=== PATIENT | male | born 1945 | race Caucasian/White ===

== ENCOUNTER 2016-11-01 06:33 | Inpatient (IN) | payer OTHER, MEDICARE ==
--- NOTE | 2016-10-18 08:17 | EKG REPORT ---
SEVERITY:- ABNORMAL ECG - SINUS RHYTHM LVH WITH SECONDARY REPOLARIZATION ABNORMALITY : Confirmed by: Mj Adler MD 18-Oct-2016 08:16:48
[2016-10-18 09:26] LABS: ABSOLUTE BASOPHILS # (AUTO) 0.1 10^3/uL (0.0-0.2); ABSOLUTE EOSINOPHILS # (AUTO) 0.2 10^3/uL (0.0-0.6); ABSOLUTE LYMPHOCYTES (AUTO) 1.6 10^3/uL (0.5-4.7); ABSOLUTE MONOCYTES (AUTO) 0.6 10^3/uL (0.1-1.4); ABSOLUTE NEUT (AUTO) 6.5 10^3/uL (1.7-8.2); BASOPHILS % (AUTO) 0.6 % (0-2); HEMATOCRIT 43.2 % (37.9-51.0); HEMOGLOBIN 14.3 g/dL (13.5-17.0); HGB HCT DIFFERENCE -0.3; LYMPHOCYTES % (AUTO) 17.5 % (13-45); MEAN CORPUSCULAR HEMOGLOBIN 29.5 pg (27.0-33.4); MEAN CORPUSCULAR HGB CONC 33.1 g/dL (32.0-36.0); MEAN CORPUSCULAR VOLUME 89 fl (80-97); RED BLOOD COUNT 4.84 10^6/uL (4.35-5.55); RED CELL DISTRIBUTION WIDTH 14.7 % (11.5-14.0); SEGMENTED NEUTROPHILS % (AUTO) 72.9 % (42-78); WHITE BLOOD COUNT 8.9 10^3/uL (4.0-10.5)
[2016-10-18 09:29] LABS: APPEARANCE,URINE CLEAR; BILIRUBIN,URINE NEGATIVE (NEGATIVE); GLUCOSE, URINE NEGATIVE (NEGATIVE); KETONES,URINE NEGATIVE (NEGATIVE); LEUKOCYTE ESTERASE,URINE NEGATIVE (NEGATIVE); NITRITE,URINE NEGATIVE (NEGATIVE); PROTEIN,URINE >=500 mg/dL (NEGATIVE); URINE SPECIFIC GRAVITY 1.024; UROBILINOGEN,URINE NEGATIVE mg/dL (<2.0)
[2016-10-18 09:59] LABS: ANION GAP 13 (5-19); BLOOD UREA NITROGEN 19 mg/dL (7-20); CALCIUM 9.5 mg/dL (8.4-10.2); CARBON DIOXIDE 28 mmol/L (22-30); CHLORIDE 103 mmol/L (98-107); CREATININE RESULT 0.93 mg/dL (0.52-1.25); GLUCOSE 112 mg/dL (75-110); POTASSIUM 4.2 mmol/L (3.6-5.0); SODIUM 143.8 mmol/L (137-145)
[2016-11-18 12:39] LABS: HEMATOCRIT 46.4 % (37.9-51.0); HEMOGLOBIN 15.2 g/dL (13.5-17.0); HGB HCT DIFFERENCE -0.8; MEAN CORPUSCULAR HEMOGLOBIN 29.6 pg (27.0-33.4); MEAN CORPUSCULAR HGB CONC 32.7 g/dL (32.0-36.0); MEAN CORPUSCULAR VOLUME 91 fl (80-97); RED BLOOD COUNT 5.13 10^6/uL (4.35-5.55)
[2016-11-18 12:44] LABS: APPEARANCE,URINE CLEAR; BILIRUBIN,URINE NEGATIVE (NEGATIVE); GLUCOSE, URINE NEGATIVE (NEGATIVE); KETONES,URINE NEGATIVE (NEGATIVE); LEUKOCYTE ESTERASE,URINE NEGATIVE (NEGATIVE); NITRITE,URINE NEGATIVE (NEGATIVE); PROTEIN,URINE 100 mg/dL (NEGATIVE); URINE SPECIFIC GRAVITY 1.014; UROBILINOGEN,URINE NEGATIVE mg/dL (<2.0)
[2016-11-18 12:58] LABS: ANION GAP 12 (5-19); BLOOD UREA NITROGEN 20 mg/dL (7-20); CALCIUM 9.9 mg/dL (8.4-10.2); CARBON DIOXIDE 31 mmol/L (22-30); CHLORIDE 100 mmol/L (98-107); CREATININE RESULT 0.98 mg/dL (0.52-1.25); GLUCOSE 86 mg/dL (75-110); POTASSIUM 4.8 mmol/L (3.6-5.0); SODIUM 142.7 mmol/L (137-145)
[2016-11-29] MEDS ORDERED: BUPIVACAINE INJ/PF LIPOSOME/PF 266 MG/20 ML SDV IJ PRN (05:00)
[2016-11-29] MEDS ORDERED: IBUPROFEN 800 MG in NORMAL SALINE 250 ML IV PRN (05:00)
[2016-11-29] MEDS ORDERED: IBUPROFEN 800 MG/NS 250 ML IV PRN ×2 (05:00)
[2016-11-29] MEDS ORDERED: SCOPOLAMINE HYDROBROMIDE 1.5 MG PATCH.TD72 TD PRN (05:00)
[2016-11-29] MEDS ORDERED: BUPIVACAINE INJ/PF LIPOSOME/PF 266 MG/20 ML SDV INFIL PRN (05:00)
[2016-11-29] MEDS ORDERED: OXYCODONE HCL SR 10 MG TABLET PO PRN ×2 (05:00)
[2016-11-29] MEDS ORDERED: NORMAL SALINE 1000 ML 1,000 ML IV PRN (05:00)
[2016-11-29] MEDS ORDERED: LANSOPRAZOLE 15 MG TAB.RAP.DR PO PRN ×2 (05:00)
[2016-11-29] MEDS ORDERED: SCOPOLAMINE HYDROBROMIDE 1.5 MG PATCH.TD72 TOP PRN (05:00)
[2016-11-29] MEDS ORDERED: VANCOMYCIN HCL 1,000 MG in DEXTROSE 5%-WATER 250 ML IV PRN ×4 (05:00)
[2016-11-29] MEDS ORDERED: ALBUTEROL SULFATE 0.083% NEB 2.5 MG/3 ML AMPUL NEB ONE (06:05)
[2016-11-29 06:34] LABS: POTASSIUM 3.7 mmol/L (3.6-5.0)
[2016-11-29] MEDS ORDERED: BUPIVACAINE INJ/PF LIPOSOME/PF 266 MG/20 ML SDV ONE (06:41)
[2016-11-29] MEDS ORDERED: THROMBIN (BOVINE) TOPICAL 20000 UNIT VIAL ONE (06:41)
[2016-11-29] MEDS ORDERED: THROMBIN (BOVINE) 5000 UNIT EPITAXIS KIT ONE (06:41)
[2016-11-29] MEDS ORDERED: PROPOFOL INJ 200 MG/20 ML VIAL IV ONE (06:44)
[2016-11-29] MEDS ORDERED: TRANEXAMIC ACID INJ/PF 1,000 MG/10 ML SDV IV ONE ×2 (06:44→11:00)
[2016-11-29] MEDS ORDERED: FENTANYL CITRATE INJ/PF 100 MCG/2 ML AMPUL ONE (06:44)
[2016-11-29] MEDS ORDERED: MIDAZOLAM 2 MG/2 ML INJ ONE (06:44)
[2016-11-29] MEDS ORDERED: CEFAZOLIN INJ 1 GM VIAL ONE (06:48)
[2016-11-29] MEDS ORDERED: PROMETHAZINE HCL INJ 25 MG/1 ML VIAL IV PRN (08:07)
[2016-11-29] MEDS ORDERED: MEPERIDINE HCL/PF INJ 25 MG/1 ML DISP.SYRIN IV PRN (08:07)
[2016-11-29] MEDS ORDERED: ONDANSETRON HCL INJ/PF 4 MG/2 ML SDV IV PRN ×2 (08:07→09:02)
[2016-11-29] MEDS ORDERED: FENTANYL CITRATE INJ/PF 100 MCG/2 ML AMPUL IV PRN ×3 (08:07)
[2016-11-29] MEDS ORDERED: MAG HYDROX/AL HYDROX/SIMETH SUSP 30 ML UDCUP PO PRN (09:02)
[2016-11-29] MEDS ORDERED: RINGERS SOLUTION,LACTATED 1,000 ML IV PRN (09:02)
[2016-11-29] MEDS ORDERED: MORPHINE SULFATE 10 MG/ML INJ IV PRN ×3 (09:02)
[2016-11-29] MEDS ORDERED: MORPHINE SULFATE 10 MG/ML INJ IM PRN (09:02)
[2016-11-29] MEDS ORDERED: ZOLPIDEM TARTRATE 5 MG TABLET PO PRN (09:02)
[2016-11-29] MEDS ORDERED: DIPHENHYDRAMINE HCL 50 MG/ML VIAL IV PRN (09:02)
[2016-11-29] MEDS ORDERED: ONDANSETRON 4 MG TAB.RAPDIS PO PRN (09:02)
--- NOTE | 2016-11-29 09:02 | Operative Report ---
Operative Report DATE OF SURGERY: 11/29/16 PREOPERATIVE DIAGNOSIS: left knee oa OPERATION: Left TKA SURGEON: ANDREW MARKHAM ANESTHESIA: Spinal TISSUE REMOVED OR ALTERED: bone to path ESTIMATED BLOOD LOSS: min PROCEDURE: Implants used: Femur: Christine triathlon #8 CR femur Tibia:[#7 tibia] Tibial liner:[9 mm CS liner ] Patella:[40 mm oval patella] Procedure with the patient supine on the operating table the [left] the limb is prepped and draped in a sterile fashion. The limb was elevated for exsanguination and the tourniquet inflated to 280 torr. A standard midline median parapatellar approach the knee is taken. Access is gained to the femoral canal through the intercondylar notch. Intramedullary alignment instrumentation used to resect 10 mm of distal femur in 5 of valgus. Sizing guide indicated a size[8] femur. Appropriate cutting jig is then used to fashion anterior posterior and chamfer cuts. A trial reduction femurs performed and this is judged to be adequate. Attention was next turned to the tibia. Using an extra medullary alignment system[9] millimeters was resected off the[lateral] tibial plateau. This is sized to a size[7] tibia. A trial reduction was now performed with a[8] femur and a[7] tibia using a[9] millimeters spacer. It is full extension and central patellofemoral tracking. The articular surface the patella was next resected using an oscillating saw. All trial implants were removed. Polymethylmethacrylate is mixed and used to cement the above implants in place. On adequate curing the cement excess cement was removed the tourniquet was deflated hemostasis obtained the wound is then closed in layers using interrupted Vicryl followed by harsha. A sterile compressive dressing was applied and the patient returned to recovery room in satisfactory condition.
--- NOTE | 2016-11-29 09:48 | RADIOLOGY REPORT (SQ) ---
EXAM DESCRIPTION: KNEE LEFT 2 VIEWS COMPLETED DATE/TIME: 11/29/2016 9:34 am REASON FOR STUDY: Post OP -Long Cassette in PACU M17.12 UNILATERAL PRIMARY OSTEOARTHRITIS, LEFT KNE E COMPARISON: 11/07/2015. NUMBER OF VIEWS: Two view(s). TECHNIQUE: Digital radiographic images of the left knee post-procedure. LIMITATIONS: None. FINDINGS: BONES: No worrisome or unexpected findings post-procedure. DEVICE: Total knee arthroplasty SOFT TISSUES: No worrisome findings. Expected postoperative soft tissue changes. IMPRESSION: SATISFACTORY POSTOPERATIVE LEFT KNEE. TECHNICAL DOCUMENTATION: JOB ID: [id number] [employer]- All Rights Reserved
[2016-11-29] MEDS ORDERED: DEXTROSE 40% GEL 15 GM TUBE X 2 PO PRN (09:55)
[2016-11-29] MEDS ORDERED: DEXTROSE 50%-WATER SYRINGE 12.5 GM/25 ML DOSE IV PRN (09:55)
[2016-11-29] MEDS ORDERED: DEXTROSE 40% GEL 15 GM TUBE PO PRN (09:55)
[2016-11-29] MEDS ORDERED: GLUCAGON,HUMAN RECOMB 1 MG INJ IM PRN (09:55)
[2016-11-29] MEDS ORDERED: INSULIN LISPRO 100 UNIT/ML 3 ML VIAL SUBCUT PRN (09:55)
[2016-11-29] MEDS ORDERED: DEXTROSE 50%-WATER SYRINGE 25 GM/50 ML DOSE IV PRN (09:55)
[2016-11-29] MEDS: OXYCODONE HCL IR 5 MG TABLET PO PRN ×2 (12:22→20:25)
[2016-11-29] MEDS: IBUPROFEN 800 MG in NORMAL SALINE 250 ML IV SCH ×2 (14:09→21:55)
[2016-11-29] MEDS: METFORMIN HCL 500 MG TABLET PO SCH (17:38)
[2016-11-29] MEDS: SENNOSIDES/DOCUSATE 8.6-50 MG 1 EACH TABLET PO SCH (17:38)
[2016-11-29] MEDS: OXYCODONE HCL SR 10 MG TABLET PO SCH (17:38)
[2016-11-29] MEDS ORDERED: VANCOMYCIN HCL 1,000 MG in DEXTROSE 5%-WATER 250 ML IV ONE (21:00)
[2016-11-29] MEDS: RIVAROXABAN 10 MG TABLET PO SCH (21:55)
[2016-11-30 05:29] LABS: HEMATOCRIT 35.3 % (37.9-51.0); HEMOGLOBIN 11.6 g/dL (13.5-17.0); HGB HCT DIFFERENCE -0.5; MEAN CORPUSCULAR HEMOGLOBIN 29.5 pg (27.0-33.4); MEAN CORPUSCULAR VOLUME 89 fl (80-97); RED BLOOD COUNT 3.95 10^6/uL (4.35-5.55); RED CELL DISTRIBUTION WIDTH 14.6 % (11.5-14.0); WHITE BLOOD COUNT 12.4 10^3/uL (4.0-10.5)
[2016-11-30] MEDS: OXYCODONE HCL SR 10 MG TABLET PO SCH ×2 (05:29→17:48)
[2016-11-30] MEDS: IBUPROFEN 800 MG in NORMAL SALINE 250 ML IV SCH ×3 (05:29→22:22)
[2016-11-30] MEDS: LANSOPRAZOLE 30 MG TAB.RAP.DR PO SCH (05:29)
[2016-11-30 05:50] LABS: ANION GAP 9 (5-19); BLOOD UREA NITROGEN 19 mg/dL (7-20); CALCIUM 8.5 mg/dL (8.4-10.2); CARBON DIOXIDE 26 mmol/L (22-30); CHLORIDE 103 mmol/L (98-107); CREATININE RESULT 0.82 mg/dL (0.52-1.25); GLUCOSE 156 mg/dL (75-110); POTASSIUM 4.3 mmol/L (3.6-5.0); SODIUM 138.4 mmol/L (137-145)
--- NOTE | 2016-11-30 06:52 | PDOC PROGRESS REPORT ---
Subjective Progress Note for:: 11/30/16 Subjective:: Patient complains of insomnia Physical Exam Vital Signs: Temp Pulse Resp BP Pulse Ox 36.9 C 57 L 21 H 93/42 L 92 11/30/16 04:27 11/30/16 04:27 11/30/16 04:27 11/30/16 04:27 11/30/16 04:27 Intake & Output 11/28/16 11/29/16 11/30/16 06:59 06:59 06:59 Intake Total 0 5422 Output Total 1675 Balance 0 3747 General appearance: PRESENT: no acute distress Head exam: PRESENT: normocephalic Eye exam: PRESENT: EOMI Respiratory exam: PRESENT: unlabored Cardiovascular exam: PRESENT: RRR Pulses: PRESENT: +1 pedal pulses bilateral Vascular exam: PRESENT: normal capillary refill GI/Abdominal exam: PRESENT: soft Rectal exam: PRESENT: deferred Extremities exam: PRESENT: other - Left lower extremity clean dry and intact. Neurological exam: PRESENT: alert, awake, oriented to person, oriented to place , oriented to time, oriented to situation, CN II-XII grossly intact. ABSENT: motor sensory deficit Psychiatric exam: PRESENT: appropriate affect, normal mood. ABSENT: homicidal ideation, suicidal ideation Skin exam: PRESENT: dry, intact, warm. ABSENT: cyanosis, rash Results Laboratory Results: 11/30/16 05:17 11/30/16 05:17 11/30/16 11/30/16 05:17 05:17 WBC 12.4 H RBC 3.95 L Hgb 11.6 L Hct 35.3 L MCV 89 MCH 29.5 MCHC 33.0 RDW 14.6 H Plt Count 155 Sodium 138.4 Potassium 4.3 Chloride 103 Carbon Dioxide 26 Anion Gap 9 BUN 19 Creatinine 0.82 Est GFR ( Amer) > 60 Est GFR (Non-Af Amer) > 60 Glucose 156 H Calcium 8.5 Impressions: Chest X-Ray 10/18/16 08:17 IMPRESSION: NO SIGNIFICANT RADIOGRAPHIC FINDING IN THE CHEST. Knee X-Ray 11/29/16 09:03 IMPRESSION: SATISFACTORY POSTOPERATIVE LEFT KNEE. Status: Imported from PACS Assessment & Plan - Diagnosis (1) Arthritis of knee, left Is this a current diagnosis for this admission?: YesPlan: -year-old white male postop day 1 left knee arthroplasty with an uneventful postoperative course. Patient made excellent progress with physical therapy. He actually requested discharge today however I discouraged this and suggested that another day of physical therapy would probably be beneficial. Discharge home tomorrow with home health nursing and home health physical therapy - Time Time Spent with patient: 15-24 minutes Anticipated discharge: Home with Homehealth Within: within 24 hours
[2016-11-30] MEDS: SENNOSIDES/DOCUSATE 8.6-50 MG 1 EACH TABLET PO SCH ×2 (09:53→17:49)
[2016-11-30] MEDS: OXYCODONE HCL IR 5 MG TABLET PO PRN ×3 (09:53→22:22)
[2016-11-30] MEDS: METFORMIN HCL 500 MG TABLET PO SCH ×2 (09:54→17:49)
[2016-11-30] MEDS: ACETAMINOPHEN 325 MG TABLET PO PRN ×2 (09:58→16:41)
[2016-11-30] MEDS ORDERED: AMLODIPINE BESYLATE 5 MG TABLET PO SCH (10:00)
[2016-11-30] MEDS ORDERED: ATENOLOL 50 MG TABLET PO SCH (10:00)
[2016-11-30] MEDS ORDERED: HYDROCHLOROTHIAZIDE 25 MG TABLET PO SCH (10:00)
[2016-11-30] MEDS ORDERED: PRENATAL VITAMIN W-O CA NO5/FE FUMARATE/FA CAPSULE PO SCH (10:00)
[2016-11-30] MEDS: RIVAROXABAN 10 MG TABLET PO SCH (22:22)
[2016-12-01 05:15] LABS: HEMATOCRIT 34.6 % (37.9-51.0); HEMOGLOBIN 11.6 g/dL (13.5-17.0); HGB HCT DIFFERENCE 0.2; MEAN CORPUSCULAR HEMOGLOBIN 29.8 pg (27.0-33.4); MEAN CORPUSCULAR HGB CONC 33.6 g/dL (32.0-36.0); MEAN CORPUSCULAR VOLUME 89 fl (80-97); RED CELL DISTRIBUTION WIDTH 14.6 % (11.5-14.0); WHITE BLOOD COUNT 12.4 10^3/uL (4.0-10.5)
[2016-12-01] MEDS: IBUPROFEN 800 MG in NORMAL SALINE 250 ML IV SCH (05:31)
[2016-12-01] MEDS: LANSOPRAZOLE 30 MG TAB.RAP.DR PO SCH (05:33)
[2016-12-01] MEDS: OXYCODONE HCL SR 10 MG TABLET PO SCH (05:33)
[2016-12-01] MEDS: OXYCODONE HCL IR 5 MG TABLET PO PRN (06:24)
--- NOTE | 2016-12-01 07:12 | PDOC DISCHARGE SUMMARY ---
General - Admit/Disc Date/PCP Admission Date/Primary Care Provider: 11/29/16 05:34 TAYLOR HORTON MD Discharge Date: 12/01/16 - Discharge Diagnosis (1) Arthritis of knee, left Is this a current diagnosis for this admission?: Yes - Additional Information Resuscitation Status: Full Code Discharge Diet: Regular Discharge Activity: Activity As Tolerated, Balance Activity w/Rest, No Driving Home Medications: Aspirin [Aspirin EC] 81 mg PO DAILY 10/19/16 Amlodipine Besylate [Norvasc 5 mg Tablet] 5 mg PO QAM 10/26/16 Atenolol 50 mg PO QAM 10/26/16 Hydrochlorothiazide 25 mg PO QAM 10/26/16 Metformin HCl 100 mg PO BID 10/26/16 Oxycodone HCl [Oxy-Ir 5 mg Tablet] 5 mg PO Q6HP PRN #0 tablet 12/01/16 Rivaroxaban [Xarelto 10 mg Tablet] 10 mg PO QHS #0 tablet 12/01/16 History of Present Illness History of Present Illness: KAEL BARROW is a 71 year old male with significant left knee pain and functional disability secondary osteoarthritis. He is admitted for elective left knee arthroplasty Hospital Course Hospital Course: Patient is admitted through the operating room when he undergoes an uncomplicated left knee arthroplasty. He is returned to the floor in satisfactory condition. He makes excellent progress with physical therapy. Up to ready for discharge home with home health nursing, home health physical therapy, wheeled walker, bedside commode Physical Exam Vital Signs: Temp Pulse Resp BP Pulse Ox 37.1 C 94 23 H 111/56 L 90 L 12/01/16 00:00 12/01/16 00:00 12/01/16 00:00 12/01/16 00:00 12/01/16 00:00 Intake & Output 11/30/16 12/01/16 12/02/16 06:59 06:59 06:59 Intake Total 5422 1380 Output Total 1675 Balance 3747 1380 General appearance: PRESENT: no acute distress Head exam: PRESENT: normocephalic Eye exam: PRESENT: EOMI Respiratory exam: PRESENT: unlabored Cardiovascular exam: PRESENT: RRR Pulses: PRESENT: +1 pedal pulses bilateral Vascular exam: PRESENT: normal capillary refill GI/Abdominal exam: PRESENT: soft Rectal exam: PRESENT: deferred Extremities exam: PRESENT: other - Left lower extremity picot dressing dry and intact minor pedal edema. Distal neurovascular examination is intact. Neurological exam: PRESENT: alert, awake, oriented to person, oriented to place , oriented to time, oriented to situation. ABSENT: motor sensory deficit Psychiatric exam: PRESENT: appropriate affect, normal mood. ABSENT: homicidal ideation, suicidal ideation Skin exam: PRESENT: dry, intact, warm. ABSENT: cyanosis, rash Results Laboratory Results: 12/01/16 04:47 11/30/16 05:17 12/01/16 04:47 WBC 12.4 H RBC 3.90 L Hgb 11.6 L Hct 34.6 L MCV 89 MCH 29.8 MCHC 33.6 RDW 14.6 H Plt Count 162 Impressions: Chest X-Ray 10/18/16 08:17 IMPRESSION: NO SIGNIFICANT RADIOGRAPHIC FINDING IN THE CHEST. Knee X-Ray 11/29/16 09:03 IMPRESSION: SATISFACTORY POSTOPERATIVE LEFT KNEE. Status: Imported from PACS Qualifiers [facility] BEING DISCHARGED WITH ANY OF THE FOLLOWING DIAGNOSIS?: No VTE patient discharged on overlapping Therapy?: Yes Plan Discharge Plan: To be discharged home with home health nursing, home health physical therapy, we will walker, bedside commode. Visiting nurse service to change left knee picot dressing on postop day 7 and replaced with an OpSite. Patient will follow up with Dr. Tim and [facility] for surgery approximately 2 weeks for staple removal.
[2016-12-01 09:44] VITALS: BP 111/56
== END 2016-12-01 10:00 | disposition home health service (06) | DRG 470 ==
LOC: INOR 11-29 05:34 → 4S 11-29 10:49
PROVIDERS: ADMIT Orthopaedic Surgery; ATTEND Orthopaedic Surgery
PROC: 0SRD0J9 Replacement of Left Knee Joint with Synthetic Substitute, Cemented, Open Approach (ICD-10-PCS; principal; 2016-11-29 07:30)
DX: M17.12 Unilateral primary osteoarthritis, left knee (principal); I25.10 Atherosclerotic heart disease of native coronary artery without angina pectoris; I48.0 Paroxysmal atrial fibrillation; E11.9 Type 2 diabetes mellitus without complications; G47.30 Sleep apnea, unspecified; H54.8 Legal blindness, as defined in USA; G47.00 Insomnia, unspecified; Z79.01 Long term (current) use of anticoagulants; Z79.82 Long term (current) use of aspirin; Z79.899 Other long term (current) drug therapy
CPT/HCPCS: 01402; 36415; 71020; 80048; 81001; 82947; 82962; 83036; 84132; 85025; 85027; 88305; 88311; 93005; 93010; 94799; C2625; C9290; G8978-GP; G8979-GP; G8987-GO; G8988-GO; J0690; J1741; J2250; J2270; J2704; J3010; J3370; J3490; J7050; J7060

== ENCOUNTER → 2017-08-11 | Emergency (ER) | payer OTHER, MEDICARE ==
[~2017-08-11] MED LIST: AMIODARONE HCL INJ 150 MG/3 ML VIAL IV ONE; CALCIUM GLUCONATE 1000 MG/10 ML INJ IV ONE; EPINEPHRINE INJ 1 MG/10 ML DISP.SYRIN ONE; EPINEPHRINE INJ/PF 1 MG/1 ML AMPULE ONE; ETOMIDATE INJ/PF 20 MG/10 ML SDV IV ONE; ROCURONIUM BROMIDE INJ 50 MG/5 ML VIAL IV ONE
--- NOTE | 2017-08-11 02:26 | ER Document Report ---
ED General - General Mode of Arrival: Stretcher Information source: Emergency Med Personnel TRAVEL OUTSIDE OF THE [place] IN LAST 30 DAYS: No <YANNA RUTH - Last Filed: 08/11/17 03:22> <ALLI LEON - Last Filed: 08/11/17 03:51> - General Chief Complaint: Chest Pain Stated Complaint: DIFFICULTY BREATHING Time Seen by Provider: 08/11/17 01:14 Notes: Patient is a 72 year old male presenting to the emergency department complaining of chest pain. When the EMS arrived to the patients home he was alert and responsive and complaining of chest pain and diaphoresis. While being transported to the emergency department, the patient went into cardiac arrest. EMS states they shocked the patient once and gave 4 Epis prior to arrival and did not get a ROSC. Patient did not have a ROSC a total of 15 minutes prior to arrival. Patient has a history of afib, a systolic ejection murmur, hypertension and diabetes. (YANNA RUTH) - Related Data Allergies/Adverse Reactions: FIDEL Inhibitors [Fidel Inhibitors] Allergy (Verified 10/19/16 12:53) Blurred Vision, Dizziness Past Medical History - General Information source: Emergency Med Personnel - Social History Family History: None - Past Medical History Cardiac Medical History: Reports: Hx Atrial Fibrillation - paroxysmal, Hx Coronary Artery Disease, Hx Hypertension, Hx Heart Murmur - systolic ejection murmur Pulmonary Medical History: Reports: Hx Sleep Apnea - no CPAP Endocrine Medical History: Reports: Hx Diabetes Mellitus Type 2 Renal/ Medical History: Reports: Hx Kidney Stones Musculoskeltal Medical History: Reports Hx Arthritis Traumatic Medical History: Reports: Hx Fractures - all toes Past Surgical History: Reports: Hx Orthopedic Surgery - neck, Hx Vascular Surgery - Ablation - Immunizations Hx Diphtheria, Pertussis, Tetanus Vaccination: Yes Hx Pneumococcal Vaccination: 06/10/16 <YANNA RUTH - Last Filed: 08/11/17 03:22> - General Cannot obtain history due to: Unstable vital signs, Altered mental status - Social History Smoking Status: Unknown if Ever Smoked Family History: Other - unknown <ALLI LEON - Last Filed: 08/11/17 03:51> Review of Systems - Review of Systems -: Yes ROS unobtainable due to patient's medical condition Constitutional: No symptoms reported EENT: No symptoms reported Cardiovascular: No symptoms reported Respiratory: No symptoms reported Gastrointestinal: No symptoms reported Genitourinary: No symptoms reported Male Genitourinary: No symptoms reported Musculoskeletal: No symptoms reported Skin: No symptoms reported Hematologic/Lymphatic: No symptoms reported Neurological/Psychological: No symptoms reported -: Yes All other systems reviewed and negative <YANNA RUTH - Last Filed: 08/11/17 03:22> - Review of Systems -: Yes ROS unobtainable due to patient's medical condition <ALLI LEON - Last Filed: 08/11/17 03:51> Physical Exam <YANNA RUTH - Last Filed: 08/11/17 03:22> - Vital signs Interpretation: Hypotensive, Hypoxic, Other - no cardiac activity - General General appearance: Unresponsive In distress: Severe - HEENT Head: Normocephalic, Atraumatic Extraocular movements intact: No Pupils: Dilated, Fixed Mucous membranes: Dry Pharynx: Uvular edema. No: Blood in hypopharynx - Respiratory Respiratory status: Other - No spontaneous respirations Chest status: Other - Ecchymosis to chest wall on left - Cardiovascular Rhythm: Other - no activity - Abdominal Distension: Distended - Back Back: Normal - Extremities General upper extremity: No: Normal color, Normal strength General lower extremity: No: Normal color, Normal strength - Neurological Neuro grossly intact: No [place] Coma Scale Eye Opening: None [place] Coma Scale Verbal: None [place] Coma Scale Motor: None [place] Coma Scale Total: 3 - Skin Skin Temperature: Cool Skin Moisture: Dry Skin Color: Cyanotic <ALLI LEON - Last Filed: 08/11/17 03:51> - Neurological Notes: No gag or corneal reflex (ALLI LEON) Course <YANNA RUTH - Last Filed: 08/11/17 03:22> <ALLI LEON - Last Filed: 08/11/17 03:51> - Re-evaluation Re-evalutation: 08/11/2017 02:33 2 Intubation attempts performed at 01:20. (YANNA RUTH) Patient is a 72-year-old male who was initially being brought in by EMS for chest pain. Patient complained of chest pain in the ambulance and initial EKG done by EMS appeared to be ST elevation AR. Patient began becoming bradycardic and was paced. Patient then went into ventricular fibrillation. Patient was defibrillated. Patient then had multiple rounds of PEA and epinephrine was given 4. CPR was initiated by EMS. Here in the emergency department, CPR was continued. Patient went through multiple rhythms including V. tach, V. fib, PEA, asystole, torsades. Patient was shocked multiple times. He was given multiple rounds of epinephrine. Patient was given calcium and amiodarone as well. CPR was done for over an hour. Please see code sheet. Patient was also intubated during that time. Daughter arrived while CPR was being performed. Daughter was on phone with sister who is a nurse. Daughter was present in room while CPR was being performed. Eventually her and sister asked that we stop doing CPR if the patient had not had a return of pulses for over an hour. CPR was stopped. No cardiac activity on ultrasound. Patient's pupils fixed and dilated. No gag or corneal reflex. Time of 0205. test examiner notified. came in after patient was pronounced" had been stopped. Unfortunately, patient's was brought back to the room by patient accessory did not realize that the patient's did not know that the patient was . Apparently daughter was out with the patient's and did not inform the that the patient had passed. Myself and nursing had a long discussion with the , apologetic that she did not know that the was before she walked into the room. (ALLI LEON) - Laboratory Laboratory results interpreted by me: 08/11/17 01:40 POC Glucose 374 H Procedures - Intubation Orotracheal Time of Intubation: 01:20 <YANNA RUTH - Last Filed: 08/11/17 03:22> - Intubation Orotracheal Airway evaluation: Copious secretions, Large tongue Mallampati Classification: Class 4 Intubation method: Orotracheal Blade type: Clementine Equipment used: Glidescope ETT size: 7.5 ETT secured at: Teeth Breath Sounds after Intubation: Equal End tidal CO2 confirmed: Yes Ventilator settings: CMV Intubation Complications: Oral-unsuccessful attempt - inital attempt with 8-0 tube, vocal cords too edematous to advance ETT - Ultrasound/Bedside Ultrasound/Bedside Ultrasound: Other - Multipe bedside cardiac US performed. No cardiac activity at time of <ALLI LEON - Last Filed: 08/11/17 03:51> Critical Care Note - Critical Care Note Total time excluding time spent on procedures (mins): 60 - Evaluation and management of respiratory and cardiac arrest, CPR, counseling of family <ALLI LEON - Last Filed: 08/11/17 03:51> Discharge <YANNA RUTH - Last Filed: 08/11/17 03:22> <ALLI LEON - Last Filed: 08/11/17 03:51> - Discharge Clinical Impression: Cardiac arrest, Respiratory arrest Condition: Critical Disposition: Scribe Attestation: 08/11/17 03:51 I personally performed the services described in the documentation, reviewed and edited the documentation which was dictated to the scribe in my presence, and it accurately records my words and actions. (ALLI LEON) Scribe Documentation - Scribe Written by Coreenibe:: Louie Reynolds, 08/11/2017 02:32 acting as scribe for :: Sergio <YANNA RUTH - Last Filed: 08/11/17 03:22>
== END | disposition expired ==
LOC: ER 01:14
PROC: 0BH17EZ Insertion of Endotracheal Airway into Trachea, Via Natural or Artificial Opening (ICD-10-PCS; principal; 2017-08-11)
DX: I46.9 Cardiac arrest, cause unspecified (principal); R07.9 Chest pain, unspecified; R06.02 Shortness of breath
CPT/HCPCS: 99291; 92950; 96374; 82962; 31500; J3490; J0171; J0282